=== PATIENT | male | born 1945 | race Two or more races ===

== ENCOUNTER 2016-10-29 11:24 | Inpatient (IN) | payer MEDICARE, OTHER ==
[~2016-10-29] VITALS: Ht 172.7 cm; Wt 90.7 kg
[~2016-10-29 11:24] MED LIST: GLUCOPHAGE850 MG ORAL; XARELTO15 MG ORAL
[2016-10-29] MEDS ORDERED: Acetaminophen 500mg (ES) tab ORAL ONE (12:15)
[2016-10-29] MEDS ORDERED: Ampicillin/Sulbactam Sod 3 GM in NS 110 ML IV SCH (12:15)
[2016-10-29] MEDS ORDERED: Unasyn 3gm Inj ONE (12:51)
[2016-10-29 13:25] VITALS: BP 114/64
[2016-10-29 13:57] LABS: BASOPHILS % (AUTO) 1.2 % (0.0-2.0); EOSINOPHILS % (AUTO) 0.2 % (0.0-3.0); LYMPHOCYTES % (AUTO) 9.1 % (20.0-45.0); MEAN CORPUSCULAR HEMOGLOBIN 32.1 PG (27.0-31.0); MEAN CORPUSCULAR HGB CONC 35.4 G/DL (32.0-36.0); MEAN CORPUSCULAR VOLUME 91 FL (80-99); MEAN PLATELET VOLUME 5.8 FL (6.5-10.1); MONOCYTES % (AUTO) 4.9 % (1.0-10.0); NEUTROPHILS % (AUTO) 84.7 % (45.0-75.0); PLATELET COUNT 273 K/UL (150-450); RED BLOOD COUNT 4.39 M/UL (4.70-6.10); RED CELL DISTRIBUTION WIDTH 11.6 % (11.6-14.8); WHITE BLOOD COUNT 14.3 K/UL (4.8-10.8)
[2016-10-29 14:03] LABS: PROTHROMBIN TIME 10.2 SEC (9.30-11.50)
[2016-10-29 14:23] LABS: ALANINE AMINOTRANSFERASE 15 U/L (3-41); ALBUMIN/GLOBULIN RATIO 1.1 (1.0-2.7); ANION GAP 15 (5-15); ASPARTATE AMINO TRANSFERASE 14 U/L (5-40); CALCIUM 9.7 mg/dL (8.6-10.2); CARBON DIOXIDE 26 mEQ/L (20-30); CHLORIDE 92 mEQ/L (98-107); CREATININE 0.8 mg/dL (0.7-1.2); GLOMERULAR FILTRATION RATE > 60 mL/min (>60); HEMOLYSIS 0; POTASSIUM 4.1 mEQ/L (3.4-4.9); SODIUM 133 mEQ/L (135-145); TOTAL PROTEIN 6.6 g/dL (6.6-8.7)
[2016-10-29 14:37] LABS: TROPONIN I < 0.30 ng/mL (<=0.30)
--- NOTE | 2016-10-29 14:41 | Emergency Room Report ---
History of Present Illness General Chief Complaint: Gastrointestinal Bleed Source: Patient (ARASH MURPHY M.D.) Present Illness HPI 70-year-old male presents to ED complaining of pain to the rectal area with bleeding x2 days. Patient states he takes Xarelto. Notes blood clots when he defecates. States pain in the rectal area. Notes fevers and chills. No other aggravating or relieving factors. Denies any other associated symptoms (ARASH MURPHY M.D.) Allergies: Coded Allergies: No Known Allergies (Unverified , 06/18/16) Patient History Past Medical History: DM Past Surgical History: none Pertinent Family History: none Social History: Denies: alcohol use, drug use, smoking Immunizations: UTD Reviewed Nursing Documentation: PMH: Agreed, PSxH: Agreed (ARASH MURPHY M.D.) Nursing Documentation-PMH Hx Cardiac Problems: No Hx Diabetes: Yes Hx Cancer: No Hx Gastrointestinal Problems: No Hx Neurological Problems: No (ARASH MURPHY M.D.) Review of Systems All Other Systems: negative except mentioned in HPI (ARASH MURPHY M.D.) Physical Exam Vital Signs Date Time Temp Pulse Resp B/P Pulse Ox O2 Delivery O2 Flow Rate FiO2 10/29/16 11:49 101.8 104 20 136/73 98 Room Air Sp02 EP Interpretation: reviewed, normal General Appearance: no apparent distress, alert, GCS 15, non-toxic Head: normocephalic Eyes: bilateral eye PERRL, bilateral eye normal inspection ENT: normal ENT inspection Neck: normal inspection Respiratory: chest non-tender, lungs clear, normal breath sounds, speaking full sentences Cardiovascular #1: regular rate, rhythm, no edema Gastrointestinal: normal bowel sounds, non tender, soft, non-distended, no guarding, no rebound Rectal: heme negative stool, other - erythema/induration to R buttock radiating down R posterior thigh Genitourinary: no CVA tenderness Musculoskeletal: normal inspection Neurologic: alert, oriented x3, responsive, motor strength/tone normal, sensory intact, speech normal Psychiatric: normal inspection Skin: normal inspection Lymphatic: normal inspection (ARASH MURPHY M.D.) Medical Decision Making Diagnostic Impression: Primary Impression: Perirectal cellulitis Labs Test 10/29/16 13:01 White Blood Count 14.3 K/UL (4.8-10.8) Red Blood Count 4.39 M/UL (4.70-6.10) Hemoglobin 14.1 G/DL (14.2-18.0) Hematocrit 39.8 % (42.0-52.0) Mean Corpuscular Volume 91 FL (80-99) Mean Corpuscular Hemoglobin 32.1 PG (27.0-31.0) Mean Corpuscular Hemoglobin Concent 35.4 G/DL (32.0-36.0) Red Cell Distribution Width 11.6 % (11.6-14.8) Platelet Count 273 K/UL (150-450) Mean Platelet Volume 5.8 FL (6.5-10.1) Neutrophils (%) (Auto) 84.7 % (45.0-75.0) Lymphocytes (%) (Auto) 9.1 % (20.0-45.0) Monocytes (%) (Auto) 4.9 % (1.0-10.0) Eosinophils (%) (Auto) 0.2 % (0.0-3.0) Basophils (%) (Auto) 1.2 % (0.0-2.0) Prothrombin Time 10.2 SEC (9.30-11.50) Prothromb Time International Ratio 1.0 (0.9-1.1) Activated Partial Thromboplast Time 30 SEC (23-33) Sodium Level 133 mEQ/L (135-145) Potassium Level 4.1 mEQ/L (3.4-4.9) Chloride Level 92 mEQ/L (98-107) Carbon Dioxide Level 26 mEQ/L (20-30) Anion Gap 15 (5-15) Blood Urea Nitrogen 10 mg/dL (7-23) Creatinine 0.8 mg/dL (0.7-1.2) Estimat Glomerular Filtration Rate > 60 mL/min (>60) Glucose Level 298 mg/dL (74-106) Lactic Acid Level 1.50 mmol/L (0.66-2.22) Calcium Level 9.7 mg/dL (8.6-10.2) Total Bilirubin 0.7 mg/dL (0.0-1.2) Aspartate Amino Transf (AST/SGOT) 14 U/L (5-40) Alanine Aminotransferase (ALT/SGPT) 15 U/L (3-41) Alkaline Phosphatase 137 U/L (40-129) Total Creatine Kinase 52 U/L (38-174) Troponin I < 0.30 ng/mL (<=0.30) Total Protein 6.6 g/dL (6.6-8.7) Albumin 3.5 g/dL (3.5-5.2) Globulin 3.1 g/dL Albumin/Globulin Ratio 1.1 (1.0-2.7) (ARASH MURPHY M.D.) ER Course Received signout from Dr Murphy to followup CTAP for this patient with concern for perineal/rectal abscess. 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 CTAP does nto demonstrate abscess. + colitis/enteritis of distal colon with edema of right thigh tissue Unasyn already given Will add on Flagyl and Vanc Endorsed to Dr Watson for admission here He requested ID Dr Gutierrez and Dr Berrios GenSujesseniag consults, which I placed at 408pm Patient remains stable in ED (MIRIAM BOWEN M.D.) Last Vital Signs Date Time Temp Pulse Resp B/P Pulse Ox O2 Delivery O2 Flow Rate FiO2 10/29/16 13:25 98.6 84 18 114/64 94 Room Air (ARASH MURPHY M.D.) Status: improved (MIRIAM BOWEN M.D.) Disposition: ADMITTED INPATIENT Condition: Serious Referrals: NON PHYSICIAN (PCP) ARASH MURPHY M.D. Oct 29, 2016 14:41 MIRIAM BOWEN M.D. Oct 29, 2016 16:08
[2016-10-29 15:12] VITALS: BP 107/63
--- NOTE | 2016-10-29 15:55 | Diagnostic Imaging Report ---
Clinical Indication: Abdominal pain. Rectal bleeding. Only graft right thigh Technique: No oral contrast utilized, per emergency room physician request IV administration nonionic contrast. Venous phase spiral acquisition obtained through the abdomen and pelvis. Multiplanar reconstructions were generated. Total dose length product 1/2/19 mGycm. CTDIvol(s) 17.9 mGy Comparison: No Findings: There is edema of the medial proximal right thigh, some associated skin thickening. This is mild. This extends beyond the imaging volume There is wall thickening of the distal and terminal ileum, and infiltration of the adjacent fat. No focal fluid collections to suggest abscess. There is also wall thickening of the sigmoid colon. No bowel distention. No free or loculated intraperitoneal air or fluid is evident. The appendix is normal. There is no evidence of diverticulosis or diverticulitis. There is a small duodenal diverticulum. The distal esophagus and stomach are unremarkable. There are small bilateral fat-containing inguinal hernias The gallbladder contains multiple gallstones. The liver, bile ducts pancreas, spleen, adrenals, right kidney are unremarkable. The left kidney demonstrates 2 adjacent cysts. No renal or ureteral calculi, hydronephrosis, or hydroureter. No retroperitoneal or mesenteric mass or adenopathy. The prostate is moderately enlarged, measuring 6.1 cm transverse by 4.1 cm AP. The included lung bases are clear. The heart is enlarged. There are degenerative changes of the lumbar spine. A single gas bubble is seen in the paraspinous soft tissues just to the right of the L4 spinous process. No associated soft tissue infiltration or fluid is demonstrated. Impression: Wall thickening of the distal and terminal ileum, and of the sigmoid colon. Findings are consistent with enteritis/colitis, nonspecific as regards etiology. No evidence of associated abscess Edema of the the medial right thigh soft tissues, incompletely included. Nonspecific as regards etiology Single gas bubble in the paraspinous soft tissues just to the right L4 spinous process. Of uncertain significance. Correlate with any clinical history of recent instrumentation in this area. Cardiomegaly Cholelithiasis Prostatomegaly Incidental findings as noted, including degenerative spondylosis, small fat-containing bilateral inguinal hernias, left renal cysts The CT scanner at [facility] is accredited by the [employer] and the scans are performed using protocols designed to limit radiation exposure to as low as reasonably achievable to attain images of sufficient resolution adequate for diagnostic evaluation.
[2016-10-29] MEDS ORDERED: Vancomycin 1.5 GM in D5W 325 ML IVPB STA (16:08)
[2016-10-29] MEDS ORDERED: metroNIDAZOLE 500mg 100 ML IVPB ONE (16:15)
[2016-10-29] MEDS ORDERED: Vancomycin 1gm inj IVPB ONE (16:25)
[2016-10-29 16:37] LABS: CKMB 1.4 ng/mL (< 6.7)
[2016-10-29 17:21] LABS: APPEARANCE,URINE CLEAR; KETONES,URINE NEGATIVE (NEGATIVE); LEUKOCYTE ESTERASE ,URINE NEGATIVE (NEGATIVE); NITRITE,URINE NEGATIVE (NEGATIVE); PH,URINE 5 (4.5-8.0); PROTEIN,URINE 2+ (NEGATIVE); UROBILINOGEN,URINE 1 MG/DL (0.0-1.0)
[2016-10-29 17:30] LABS: BACTERIA,URINE FEW /HPF; WBC,URINE 0-2 /HPF (0 - 0)
[2016-10-29] MEDS ORDERED: Lidocaine 1% 10mg/ml/Epi 0.005mg/ml 30ml vial INJ ONE (17:53)
[2016-10-29] MEDS ORDERED: Lidocaine 1% Plain 30 ml INJ ONE (17:53)
--- NOTE | 2016-10-29 19:03 | Consultation ---
History of Present Illness General Date patient seen: Oct 29, 2016 Chief Complaint: perineal / thigh pain Reason for Consultation: perineal / thigh abscess with cellulitis Present Illness HPI 70 year old male with multiple medical problems as listed below presents to ED complaining of right groin pain. patient stated that he has had history of right groin abscesses for years now. he gets one almost annually. states that most of the time they resolve on their own. most recent episode began 5 days ago when he first noted an area of induration in his right groin around the thigh perineal crease. this began to enlarge, become red, warm and tender. two days later he noted and area of skin that opened up and began to drain. as this continued he decided to come to ED today for evaluation. CT scan performed and cellulitis noted in right groin. surgery called to evaluate. When seen at bedside patient states above. otherwise well. no n/v/f/c. drainage has been foul smelling. Allergies: Coded Allergies: No Known Allergies (Unverified , 06/18/16) Medication History Scheduled Metformin Hcl* (Glucophage*), 850 MG ORAL TIAC Rivaroxaban (Xarelto), 15 MG ORAL BID Patient History History Provided By: Patient Healthcare decision maker Resuscitation status Advanced Directive on File Past Medical/Surgical History Past Medical/Surgical History: (1) Deep vein thrombosis (DVT) of right upper extremity (2) Diabetes type 2, uncontrolled (3) Deep vein thrombosis (DVT) of femoral vein of right lower extremity (4) Perirectal cellulitis Review of Systems Constitutional: Denies: chills, fever, malaise, no symptoms, other, see HPI, sweats, weakness Eye: Denies: acuity changes, blurred vision, discharge, double vision, eye pain , no symptoms, nose congestion, nose pain, other, see HPI, tearing ENT: Denies: ear discharge, ear pain, hearing loss, mouth pain, nasal discharge , no symptoms, nose congestion, nose pain, other, see HPI, throat pain, throat swelling Respiratory: Denies: RICARDO, cough, no symptoms, orthopnea, other, see HPI, shortness of breath, sputum, stridor, wheezing Cardiovascular: Denies: PND, chest pain, edema, no symptoms, other, palpitations, see HPI, syncope Gastrointestinal: Denies: abdominal pain, constipation, diarrhea, hematemesis, melena, nausea, no symptoms, other, see HPI, vomiting Genitourinary: Denies: discharge, dysuria, frequency, hematuria, incontinence, no symptoms, other, pain, retention, see HPI, urgency, vag bleed/dc Musculoskeletal: Denies: back pain, gout, joint pain, joint swelling, muscle pain, muscle stiffness, no symptoms, other, see HPI Skin: Reports: other - right groin pain Psychiatric: Denies: HI, SI, anxiety, depressed feelings, emotional problems, hallucinations, no symptoms, other, prior hx, see HPI Neurological: Denies: dizziness, focal weakness, headache, no symptoms, numbness, other, paresthesia, see HPI, seizure, syncope, tingling, tremors Endocrine: Denies: excessive sweating, flushing, increased thirst, increased urine, intolerance to temperature, no symptoms, other, see HPI, unexplained weight loss Hematologic/Lymphatic: Denies: anemia, blood clots, diathesis, easy bleeding, easy bruising, no symptoms, other, see HPI, swollen glands All Other Systems: negative except mentioned in HPI Physical Exam General Appearance: WD/WN, no apparent distress, alert Lines, tubes and drains: peripheral HEENT: normocephalic, atraumatic Neck: non-tender, supple Respiratory/Chest: lungs clear, normal breath sounds, no respiratory distress Cardiovascular/Chest: normal peripheral pulses, normal rate, regular rhythm Abdomen: normal bowel sounds, non tender, soft, no organomegaly Genitourinary/Rectal: other - abscess with cellulitis, erythema, edema, and fluctuance in right groin. 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, no motor/sensory deficits Last 24 Hour Vital Signs Date Time Temp Pulse Resp B/P Pulse Ox O2 Delivery O2 Flow Rate FiO2 10/29/16 15:12 98.3 89 16 107/63 98 Room Air 10/29/16 13:53 98.3 10/29/16 13:25 98.6 84 18 114/64 94 Room Air 10/29/16 11:49 101.8 104 20 136/73 98 Room Air Laboratory Tests Test 10/29/16 13:01 10/29/16 16:22 White Blood Count 14.3 K/UL (4.8-10.8) H Red Blood Count 4.39 M/UL (4.70-6.10) L Hemoglobin 14.1 G/DL (14.2-18.0) L Hematocrit 39.8 % (42.0-52.0) L Mean Corpuscular Volume 91 FL (80-99) Mean Corpuscular Hemoglobin 32.1 PG (27.0-31.0) H Mean Corpuscular Hemoglobin Concent 35.4 G/DL (32.0-36.0) Red Cell Distribution Width 11.6 % (11.6-14.8) Platelet Count 273 K/UL (150-450) Mean Platelet Volume 5.8 FL (6.5-10.1) L Neutrophils (%) (Auto) 84.7 % (45.0-75.0) H Lymphocytes (%) (Auto) 9.1 % (20.0-45.0) L Monocytes (%) (Auto) 4.9 % (1.0-10.0) Eosinophils (%) (Auto) 0.2 % (0.0-3.0) Basophils (%) (Auto) 1.2 % (0.0-2.0) Prothrombin Time 10.2 SEC (9.30-11.50) Prothromb Time International Ratio 1.0 (0.9-1.1) Activated Partial Thromboplast Time 30 SEC (23-33) Sodium Level 133 mEQ/L (135-145) L Potassium Level 4.1 mEQ/L (3.4-4.9) Chloride Level 92 mEQ/L (98-107) L Carbon Dioxide Level 26 mEQ/L (20-30) Anion Gap 15 (5-15) Blood Urea Nitrogen 10 mg/dL (7-23) Creatinine 0.8 mg/dL (0.7-1.2) Estimat Glomerular Filtration Rate > 60 mL/min (>60) Glucose Level 298 mg/dL (74-106) H Lactic Acid Level 1.50 mmol/L (0.66-2.22) Calcium Level 9.7 mg/dL (8.6-10.2) Total Bilirubin 0.7 mg/dL (0.0-1.2) Aspartate Amino Transf (AST/SGOT) 14 U/L (5-40) Alanine Aminotransferase (ALT/SGPT) 15 U/L (3-41) Alkaline Phosphatase 137 U/L (40-129) H Total Creatine Kinase 52 U/L (38-174) Creatine Kinase MB 1.4 ng/mL (< 6.7) Creatine Kinase MB Relative Index 2.6 Troponin I < 0.30 ng/mL (<=0.30) Total Protein 6.6 g/dL (6.6-8.7) Albumin 3.5 g/dL (3.5-5.2) Globulin 3.1 g/dL Albumin/Globulin Ratio 1.1 (1.0-2.7) Urine Color Yellow Urine Appearance Clear Urine pH 5 (4.5-8.0) Urine Specific [place] 1.015 (1.005-1.035) Urine Protein 2+ (NEGATIVE) H Urine Glucose (UA) 4+ (NEGATIVE) H Urine Ketones Negative (NEGATIVE) Urine Occult Blood 1+ (NEGATIVE) H Urine Nitrite Negative (NEGATIVE) Urine Bilirubin Negative (NEGATIVE) Urine Urobilinogen 1 MG/DL (0.0-1.0) H Urine Leukocyte Esterase Negative (NEGATIVE) Urine RBC 2-4 /HPF (0 - 0) H Urine WBC 0-2 /HPF (0 - 0) Urine Squamous Epithelial Cells None /LPF (NONE/OCC) Urine Bacteria Few /HPF (NONE) Height (Feet): 5 Height (Inches): 8.00 Weight (Pounds): 200 Medications Current Medications Medications (Trade) Dose Ordered Sig/Evangelina Route PRN Reason Start Time Stop Time Status Last Admin Dose Admin Ampicillin Sodium/ Sulbactam Sodium/ Sodium Chloride (Unasyn/Sodium Chloride) 110 ml @ 220 mls/hr Q6H IV 10/29/16 12:15 10/30/16 12:14 10/29/16 13:19 Assessment/Plan Problem List: (1) Perirectal cellulitis ICD Codes: K61.1 - Rectal abscess SNOMED: [id number] Assessment/Plan 70 M groin/perineal/lateral thigh abscess with surrounding cellulitis. Afebrile , HD stable, leukocytosis of 14k, elevated glucose exam as above, CT scan reviewed. Will I&D abscess at bedside in ED - risks, benefits and alternatives discussed in detail with patient. consented at bedside - please refer to operative report for detail Wet to Dry dressings to groin I&D BID IV Abx Tight glucose control Trending labs. Will monitor wound. thank you for this consultation. will follow with you Davie Gongora Oct 29, 2016 19:03
--- NOTE | 2016-10-29 19:07 | Operative Note - PDOC ---
Operative Note Operative Note Date of Operation/Procedure: Oct 29, 2016 Chief Complaint: right groin pain Pre-op Diagnosis: Right groin abscess with cellulitis Procedure: incision and drainage of right groin abscess Post-op Diagnosis: same as pre-op Operative Findings: consistent w/pre-op dx studies Surgeon: Rolan Anesthesiologist: edison provided by surgeon Anesthesia: local Specimen: yes - culture taken for micro Complications: none Condition: stable Fluids: n/a Estimated Blood Loss: minimal Drains: none Packing: gauze wet to dry bid Implant(s) used?: No Indications for Procedure 70 M with right groin abscess w/ surrounding cellulitis. Please refer to Consult note for details. On exam area of fluctuance identified consistent with abscess. I&D indicated. patient informed of findings. risks, benefits, and alternatives discussed in detail. patient expressed understanding and consented to surgery Description of Procedure patient was made comfortable at bedside. proposed skin site was cleaned, prepped and draped in standard surgical fashion. 1% lidocaine with epi was infiltrated into proposed skin site. 10cc was used in total. using fresh #11 scalpel a skin incision was made over area of fluctuance. 10-15cc of purulent fluid was evacuated. cultures were taken of this pus. a second incision was made to evacuate smaller connecting abscess. both wounds were washed out. packing and dressings were applied. patient tolerated procedure well. Davie Gongora Oct 29, 2016 19:07
[2016-10-29 20:00] VITALS: BP 123/66
[2016-10-29] MEDS ORDERED: Zolpidem 5mg tab ORAL PRN (20:45)
[2016-10-29] MEDS ORDERED: Norco 5mg/325mg tab ORAL PRN (20:45)
[2016-10-29] MEDS ORDERED: Vancomycin 1.5 GM in D5W 325 ML IVPB ONE (21:00)
--- NOTE | 2016-10-29 23:07 | History and Physical Report ---
DATE OF ADMISSION: 10/29/2016 CHIEF COMPLAINT: Rectal bleeding. HISTORY OF PRESENT ILLNESS: The patient states that he has been ill for about four to five days with blood in the stool and pain around the rectum. He was evaluated in the emergency department and found to have cellulitis in the perineal area and down the medial thigh of the right leg as well as fever over 101 degrees. An admission was arranged. PAST MEDICAL HISTORY: The patient states he has never had any rectal problems in the past. He has a history of diabetes and is on oral medication for this. He denies any history of hypertension or hyperlipidemia. He is on anticoagulants. He states he has no heart disease. He has a history of deep vein thrombosis on the right leg several months ago. ALLERGIES: None. MEDICATIONS: Xarelto and metformin. REVIEW OF SYSTEMS: Otherwise unremarkable. PHYSICAL EXAMINATION: GENERAL: The patient is an overweight man, who appears his stated age. VITAL SIGNS: Show temperature of 101.8 degrees; heart rate was elevated, but came down after the temperature improved; and blood pressure is normal. SKIN: Warm and dry except in the perineal area in the right thigh as noted below. HEENT: The head is normocephalic. NECK: No jugular venous distention. CHEST: Clear. CARDIAC: Rhythm is regular. ABDOMEN: Soft and nontender. Liver and spleen are not enlarged. EXTREMITIES: No clubbing, cyanosis, or edema. The perirectal area and perineum and medial right thigh have a large area of cellulitis with some ulceration in the perineum and the base of the scrotum. LABORATORY TESTS AND IMAGING: Show normal ProTime and PTT. The white count is 14,300, hemoglobin is 14.1, and platelets are normal. Blood sugar is 298. Alkaline phosphatase elevated at 137. CT scan of the abdomen and pelvis showed some thickening of the distal terminal ileum and sigmoid colon consistent with enteritis or colitis, which is nonspecific. There is edema of the right medial thigh soft tissue, but this is incompletely imaged. The prostate is moderately enlarged. There is a gas bubble in the soft tissue of the paraspinous region to the right of L4 of uncertain significance. The heart is enlarged. There are gallstones and bilateral inguinal hernias. IMPRESSION: 1. 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 2. Diabetes mellitus, poorly controlled. 3. Possible colitis or ileitis. PLAN: The patient will be admitted. Given broad-spectrum antibiotics. Infectious disease consultation and surgical consultation have been requested. Brady Watson M.D. DR: TINA JOB#: [id number] CC:
[2016-10-29 23:48] VITALS: BP 134/72
[2016-10-30 04:00] VITALS: BP 132/74
[2016-10-30] MEDS: NovoLOG Insulin Flexpen SUBQ SCH ×4 (06:10→22:07)
[2016-10-30 07:01] LABS: BASOPHILS % (AUTO) 0.7 % (0.0-2.0); EOSINOPHILS % (AUTO) 0.9 % (0.0-3.0); MEAN CORPUSCULAR HEMOGLOBIN 32.8 PG (27.0-31.0); MEAN CORPUSCULAR HGB CONC 36.5 G/DL (32.0-36.0); MEAN CORPUSCULAR VOLUME 90 FL (80-99); MONOCYTES % (AUTO) 6.4 % (1.0-10.0); PLATELET COUNT 275 K/UL (150-450); RED BLOOD COUNT 4.08 M/UL (4.70-6.10); RED CELL DISTRIBUTION WIDTH 11.3 % (11.6-14.8); WHITE BLOOD COUNT 10.8 K/UL (4.8-10.8)
[2016-10-30 07:10] LABS: ALANINE AMINOTRANSFERASE 11 U/L (3-41); ALBUMIN/GLOBULIN RATIO 0.8 (1.0-2.7); ANION GAP 14 (5-15); ASPARTATE AMINO TRANSFERASE 11 U/L (5-40); CALCIUM 9.4 mg/dL (8.6-10.2); CARBON DIOXIDE 24 mEQ/L (20-30); CHLORIDE 100 mEQ/L (98-107); CREATININE 0.7 mg/dL (0.7-1.2); GLOMERULAR FILTRATION RATE > 60 mL/min (>60); HEMOLYSIS 0; POTASSIUM 3.5 mEQ/L (3.4-4.9); SODIUM 138 mEQ/L (135-145); TOTAL PROTEIN 6.5 g/dL (6.6-8.7)
[2016-10-30 08:13] LABS: ERYTHROCYTE SEDIMENTATION RATE 98 MM/HR (0-20)
[2016-10-30 08:15] VITALS: BP 103/58
--- NOTE | 2016-10-30 08:16 | General Progress Note ---
Progress Note Progress Note Left groin abscess wound very clean, slow granulation starting, no bleeding Daily dressing changes with wet to dry. LISA WARD Oct 30, 2016 08:16
[2016-10-30] MEDS: Piperacillin/Tazobactam 3.375 GM in D5W 110 ML IVPB SCH ×4 (08:43→17:45)
[2016-10-30 11:54] VITALS: BP 112/65
[2016-10-30] MEDS: Vancomycin 1250mg in D5W 275ml IVPB SCH (12:33)
[2016-10-30 12:55] LABS: HEMOGLOBIN A1C 7.7 % (< 6.0)
[2016-10-30 13:47] LABS: CHOLESTEROL 107 mg/dL (< 200); CHOLESTEROL/HDL RATIO 8.2 (3.3-4.4); LDL CHOLESTEROL (CALC.) 70 mg/dL (60-99)
[2016-10-30 16:05] VITALS: BP 118/63
--- NOTE | 2016-10-30 19:02 | General Progress Note ---
Assessment/Plan Assessment/Plan 1. 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 2. Diabetes mellitus, poorly controlled. 3. Possible colitis or ileitis. surgery I and D and packed wound at R groin ID started Zosyn and vanco pain controlled BS better, WBC down cont rx Subjective Constitutional: Denies: chills, fever Allergies: Coded Allergies: No Known Allergies (Unverified , 06/18/16) Objective Last 24 Hour Vital Signs Date Time Temp Pulse Resp B/P Pulse Ox O2 Delivery O2 Flow Rate FiO2 10/30/16 16:05 95.7 74 18 118/63 94 Room Air 10/30/16 11:54 98.1 76 18 112/65 94 Room Air 10/30/16 08:15 98.3 82 18 103/58 93 Room Air 10/30/16 04:00 97.6 89 20 132/74 97 Room Air 10/29/16 23:48 97.4 90 19 134/72 97 Room Air 10/29/16 20:00 97.9 90 20 123/66 93 Room Air 10/29/16 19:36 98.3 89 16 107/63 98 Room Air Intake and Output 10/29/16 10/30/16 19:00 07:00 Intake Total 210 ml 975 ml Balance 210 ml 975 ml IV Total 210 ml 975 ml # Voids 1 4 # Bowel Movements 1 Laboratory Tests 10/30/16 04:55: White Blood Count 10.8, Red Blood Count 4.08L, Hemoglobin 13.4L, Hematocrit 36.7L, Mean Corpuscular Volume 90, Mean Corpuscular Hemoglobin 32.8H, Mean Corpuscular Hemoglobin Concent 36.5H, Red Cell Distribution Width 11.3L, Platelet Count 275, Mean Platelet Volume 6.0L, Neutrophils (%) (Auto) 77.0H, Lymphocytes (%) (Auto) 15.0L, Monocytes (%) (Auto) 6.4, Eosinophils (%) (Auto) 0.9, Basophils (%) (Auto) 0.7, Erythrocyte Sedimentation Rate 98H, Sodium Level 138, Potassium Level 3.5, Chloride Level 100, Carbon Dioxide Level 24, Anion Gap 14, Blood Urea Nitrogen 9, Creatinine 0.7, Estimat Glomerular Filtration Rate > 60, Glucose Level 172#H, Hemoglobin A1c 7.7H, Calcium Level 9.4, Total Bilirubin 0.5, Aspartate Amino Transf (AST/SGOT) 11, Alanine Aminotransferase ( ALT/SGPT) 11, Alkaline Phosphatase 130H, Total Protein 6.5L, Albumin 3.0L, Globulin 3.5, Albumin/Globulin Ratio 0.8L, Triglycerides Level 120, Cholesterol Level 107, LDL Cholesterol 70, HDL Cholesterol 13, Cholesterol/HDL Ratio 8.2H Height (Feet): 5 Height (Inches): 8.00 Weight (Pounds): 200 Skin: other - indurated R groin, perineum, packed MIRIAM DAWSON Oct 30, 2016 19:02
[2016-10-30 20:00] VITALS: BP 124/66
--- NOTE | 2016-10-30 22:33 | Infectious Diseases Prog Note ---
Assessment/Plan Assessment/Plan Full consult dictated: A) 1) right groin abscess and cellulitis 2) sepsis, leukocytosis, fevers, sirs 3) s/p I/D by surgery P) 1) vancomycin and zosyn 2) check wound culture and labs 3) thank you Subjective Allergies: Coded Allergies: No Known Allergies (Unverified , 06/18/16) Objective Vital Signs Last 24 Hour Vital Signs Date Time Temp Pulse Resp B/P Pulse Ox O2 Delivery O2 Flow Rate FiO2 10/30/16 20:00 97.8 79 20 124/66 95 Room Air 10/30/16 16:05 95.7 74 18 118/63 94 Room Air 10/30/16 11:54 98.1 76 18 112/65 94 Room Air 10/30/16 08:15 98.3 82 18 103/58 93 Room Air 10/30/16 04:00 97.6 89 20 132/74 97 Room Air 10/29/16 23:48 97.4 90 19 134/72 97 Room Air Height (Feet): 5 Height (Inches): 8.00 Weight (Pounds): 200 Microbiology Date/Time Source Procedure Growth Status 10/29/16 19:05 Rectum Gram Stain - Final Resulted 10/29/16 19:05 Rectum Wound Culture Pending Resulted 10/29/16 19:05 Rectum Aerobic Culture Pending Resulted 10/29/16 19:05 Rectum Anaerobic Culture Pending Resulted Laboratory Tests Test 10/30/16 04:55 White Blood Count 10.8 K/UL (4.8-10.8) Red Blood Count 4.08 M/UL (4.70-6.10) L Hemoglobin 13.4 G/DL (14.2-18.0) L Hematocrit 36.7 % (42.0-52.0) L Mean Corpuscular Volume 90 FL (80-99) Mean Corpuscular Hemoglobin 32.8 PG (27.0-31.0) H Mean Corpuscular Hemoglobin Concent 36.5 G/DL (32.0-36.0) H Red Cell Distribution Width 11.3 % (11.6-14.8) L Platelet Count 275 K/UL (150-450) Mean Platelet Volume 6.0 FL (6.5-10.1) L Neutrophils (%) (Auto) 77.0 % (45.0-75.0) H Lymphocytes (%) (Auto) 15.0 % (20.0-45.0) L Monocytes (%) (Auto) 6.4 % (1.0-10.0) Eosinophils (%) (Auto) 0.9 % (0.0-3.0) Basophils (%) (Auto) 0.7 % (0.0-2.0) Erythrocyte Sedimentation Rate 98 MM/HR (0-20) H Sodium Level 138 mEQ/L (135-145) Potassium Level 3.5 mEQ/L (3.4-4.9) Chloride Level 100 mEQ/L (98-107) Carbon Dioxide Level 24 mEQ/L (20-30) Anion Gap 14 (5-15) Blood Urea Nitrogen 9 mg/dL (7-23) Creatinine 0.7 mg/dL (0.7-1.2) Estimat Glomerular Filtration Rate > 60 mL/min (>60) Glucose Level 172 mg/dL (74-106) #H Hemoglobin A1c 7.7 % (< 6.0) H Calcium Level 9.4 mg/dL (8.6-10.2) Total Bilirubin 0.5 mg/dL (0.0-1.2) Aspartate Amino Transf (AST/SGOT) 11 U/L (5-40) Alanine Aminotransferase (ALT/SGPT) 11 U/L (3-41) Alkaline Phosphatase 130 U/L (40-129) H Total Protein 6.5 g/dL (6.6-8.7) L Albumin 3.0 g/dL (3.5-5.2) L Globulin 3.5 g/dL Albumin/Globulin Ratio 0.8 (1.0-2.7) L Triglycerides Level 120 mg/dL (< 150) Cholesterol Level 107 mg/dL (< 200) LDL Cholesterol 70 mg/dL (60-99) HDL Cholesterol 13 mg/dL (> 60) Cholesterol/HDL Ratio 8.2 (3.3-4.4) H Current Medications Medications (Trade) Dose Ordered Sig/Evangelina Route PRN Reason Start Time Stop Time Status Last Admin Dose Admin Acetaminophen (Tylenol) 650 mg Q4H PRN ORAL Mild Pain/Temp > 100.5 10/29/16 20:45 11/28/16 20:44 Acetaminophen/ Hydrocodone Bitart ([place] 5/325) 1 tab Q4H PRN ORAL Moderate Pain (Pain Scale 4-6) 10/29/16 20:45 11/05/16 20:44 Dextrose (Dextrose 50%) STAT PRN IV Hypoglycemia 10/30/16 00:00 11/29/16 00:00 Insulin Aspart (NovoLOG) BEFORE MEALS AND HS SUBQ 10/30/16 06:30 11/29/16 06:29 10/30/16 22:07 Ondansetron HCl (Zofran) 4 mg Q4H PRN IVP Nausea & Vomiting 10/29/16 20:45 11/28/16 20:44 Piperacillin Sod/ Tazobactam Sod 3.375 gm/Dextrose 110 ml @ 27.5 mls/hr Q8HR@0000,0800,1600 IVPB 10/30/16 00:00 11/06/16 00:00 10/30/16 17:45 Sodium Chloride (Sodium Chloride 1000ml bag) 1,000 ml @ 75 mls/hr [id number] IV 10/29/16 20:45 11/28/16 20:44 10/30/16 22:04 Vancomycin HCl 1 ea 1 ea DAILY PRN MISC Per rx protocol 10/29/16 21:00 11/28/16 20:59 Vancomycin HCl/ Dextrose (Vancomycin/D5W) 275 ml @ 183.708 mls/hr Q12H IVPB 10/30/16 12:00 11/04/16 11:59 10/30/16 12:33 Zolpidem Tartrate (Ambien) 5 mg HSPRN PRN ORAL Insomnia 10/29/16 20:45 11/28/16 20:44 GENET MCCLENDON Oct 30, 2016 22:33
[2016-10-31] VITALS: BP 129/74
--- NOTE | 2016-10-31 03:17 | Consultation ---
DATE OF CONSULTATION: 10/30/2016 INFECTIOUS DISEASE CONSULTATION CONSULTING PHYSICIAN: Anahi Garcia M.D. ATTENDING PHYSICIAN: Brady Watson M.D. REASON FOR CONSULTATION: Right groin and thigh abscess and cellulitis, possible sepsis, leukocytosis, and fevers. CHIEF COMPLAINT: The patient's chief complaint coming in is cellulitis of the right groin and thigh with possible perineal and perirectal involvement. HISTORY OF PRESENT ILLNESS: This is a very pleasant 70-year-old male, who comes in with groin, perineal, and perirectal pain. The patient presented to the [facility] with that complaint. The patient was noted to have a right groin and thigh abscess. The patient was treated by Surgery and is status post incision and drainage. The patient also had fevers. No leukocytosis. He could have early sepsis with SIRS criteria. Infectious Disease consultation was requested. The patient was placed on vancomycin and Zosyn. Wound culture is pending. PAST MEDICAL HISTORY: The patient's past medical history includes the history of following: The patient has a past medical history of rectal problems in the past and history of diabetes. He has a history of hypertension and hyperlipidemia. He has a history of anticoagulants. No history of heart disease. He has a history of DVT of the right leg several months ago. Please see past medical history in medical order. MEDICATIONS: Upon reviewing the MAR, the patient is on the following medications. He is on vancomycin, Zosyn, and insulin. He is on acetaminophen, Zolpidem, and Zofran. Please see medications in medical order. Outside medications were noted and reconciliated. ALLERGIES: No known allergies. SOCIAL HISTORY: Negative for smoking, alcohol, or drug abuse. FAMILY HISTORY: Noncontributory. REVIEW OF SYSTEMS: Constitutional: Generalized weakness and fatigue. No erythema, fever, or chills. Head And Neck: No thrush or dysphagia. Cardiac: No chest pain. Gastrointestinal: No nausea, vomiting, or diarrhea. Genitourinary: He has no dysuria or frequency. Pulmonary: No shortness of breath, cough, or sputum production. Skin: No rash or itching. Extremities: No extremity pain. Genitourinary: He did have perineal and perirectal pain. Neurologic: No seizures. Skin: No rash. PHYSICAL EXAMINATION: VITAL SIGNS: On admission, temperature 101.8 degrees, presently temperature is 97.8 degrees, pulse rate 79, respiratory rate 20, blood pressure 124/66, and saturation 95%. Pulse rate is as high as 104. GENERAL: Alert, responsive, and in no acute distress. HEAD AND NECK: Oral exam, no thrush. Eye exam, no icterus. Neck is supple. No JVD. No sinus tenderness. Normocephalic. No facial droop. No neck stiffness. HEART: Regular. No gallop or murmur. No friction or rub. ABDOMEN: Soft. Positive bowel sounds. Nontender. LUNGS: Clear bilaterally. No rhonchi or crackles. SKIN: No rash or dermatitis. MUSCULOSKELETAL: No effusions or contractures. EXTREMITIES: Legs are without cellulitis. PERIPHERAL VASCULAR: No cyanosis or gangrene. Right groin and thigh area has open abscess, wound, and surrounding cellulitis. Wound is well drained at this time. Abscess is well drained with mild cellulitis noted. RECTAL: Deferred. GENITOURINARY: No Mcnair. Line sites is without phlebitis. NEUROLOGIC: Intact. Nonfocal. LABORATORY DATA: Laboratory data is as follows. On admission, white count 14.3 and hemoglobin 14.1, now white count is 10.8. Creatinine is 0.7. Wound culture is pending. UA was leukocyte esterase negative. Wound culture from I&D is pending. CT scan of the abdomen and pelvis was noted. ASSESSMENT AND PLAN: 1. The patient has right groin and thigh abscess and cellulitis status post incision and drainage. The patient has possible early sepsis, systemic inflammatory response syndrome criteria, fevers, and leukocytosis. Continue vancomycin and Zosyn. Check wound culture from the incision and drainage. Continue wound care per Surgery. Continue vancomycin and Zosyn pending workup. Check followup labs. 2. Continue treatment per Dr. Watson. 3. The patient has a history of hypertension. 4. Diabetes. 5. Blood sugar and blood pressure control per Dr. Watson. 6. History of deep venous thrombosis, on anticoagulation. 7. Hyperlipidemia. 8. No known allergies. 9. Social history is negative. 10. MAR was noted. Notes and records were reviewed. Case was discussed with SREEKANTH. Anahi Garcia M.D. DR: ANITA JOB#: [id number] CC:
[2016-10-31 04:00] VITALS: BP 116/70
[2016-10-31] MEDS: NovoLOG Insulin Flexpen SUBQ SCH ×4 (05:51→20:48)
[2016-10-31 06:26] LABS: BASOPHILS % (AUTO) 1.3 % (0.0-2.0); LYMPHOCYTES % (AUTO) 19.4 % (20.0-45.0); MEAN CORPUSCULAR HEMOGLOBIN 31.9 PG (27.0-31.0); MEAN CORPUSCULAR HGB CONC 35.1 G/DL (32.0-36.0); MEAN CORPUSCULAR VOLUME 91 FL (80-99); MEAN PLATELET VOLUME 5.5 FL (6.5-10.1); MONOCYTES % (AUTO) 7.5 % (1.0-10.0); NEUTROPHILS % (AUTO) 69.9 % (45.0-75.0); PLATELET COUNT 295 K/UL (150-450); RED CELL DISTRIBUTION WIDTH 11.5 % (11.6-14.8); WHITE BLOOD COUNT 8.5 K/UL (4.8-10.8)
[2016-10-31 08:00] VITALS: BP 122/68
[2016-10-31] MEDS: Piperacillin/Tazobactam 3.375 GM in D5W 110 ML IVPB SCH ×4 (08:22→16:42)
[2016-10-31] MEDS: Vancomycin 1250mg in D5W 275ml IVPB SCH ×3 (11:30)
[2016-10-31 11:58] VITALS: BP 119/66
[2016-10-31 16:00] VITALS: BP 132/73
--- NOTE | 2016-10-31 16:39 | General Progress Note ---
Assessment/Plan Assessment/Plan 1. Cellulitis of perineum and right medial thigh, improved 2. Diabetes mellitus, improved control 3. Possible colitis or ileitis. ID started Zosyn and vanco, notes reviewed pain controlled BS better, WBC down cont rx Subjective Constitutional: Denies: fever Allergies: Coded Allergies: No Known Allergies (Unverified , 06/18/16) Objective Last 24 Hour Vital Signs Date Time Temp Pulse Resp B/P Pulse Ox O2 Delivery O2 Flow Rate FiO2 10/31/16 16:00 97.2 69 16 132/73 93 Room Air 10/31/16 11:58 97.9 64 19 119/66 99 Room Air 10/31/16 08:00 97.7 73 20 122/68 93 Room Air 10/31/16 04:00 97.4 73 18 116/70 93 Room Air 10/31/16 00:00 97.6 76 18 129/74 94 Room Air 10/30/16 20:00 97.8 79 20 124/66 95 Room Air Intake and Output 10/30/16 10/31/16 19:00 07:00 Intake Total 1749.9 ml 682.5 ml Output Total 300 ml 900 ml Balance 1449.9 ml -217.5 ml Intake Oral 720 ml IV Total 1029.9 ml 682.5 ml Output Urine Total 300 ml 900 ml # Voids 1 1 # Bowel Movements 1 Laboratory Tests 10/31/16 05:30: White Blood Count 8.5, Red Blood Count 3.90L, Hemoglobin 12.5L, Hematocrit 35.5L , Mean Corpuscular Volume 91, Mean Corpuscular Hemoglobin 31.9H, Mean Corpuscular Hemoglobin Concent 35.1, Red Cell Distribution Width 11.5L, Platelet Count 295, Mean Platelet Volume 5.5L, Neutrophils (%) (Auto) 69.9, Lymphocytes (%) (Auto) 19.4L, Monocytes (%) (Auto) 7.5, Eosinophils (%) (Auto) 2.0, Basophils (%) (Auto) 1.3 10/31/16 11:15: Vancomycin Level Trough 8.1 Height (Feet): 5 Height (Inches): 8.00 Weight (Pounds): 200 General Appearance: alert Cardiovascular: normal rate Respiratory/Chest: lungs clear MIRIAM DAWSON Oct 31, 2016 16:39
--- NOTE | 2016-10-31 17:37 | General Progress Note ---
Progress Note Progress Note Patient seen and examined at bedside. Doing well. Still has pain in groin but states it is better than prior. Denies f/v/n/v Wound still with mild purulent exudate. surrounding erythema and edema improving but still present. minimal necrotic tissue in wound bed Will re-examine wound tomorrow. If does not improve soon will likely require more debridement. I explained this to patient. He expressed understanding. continue IV Abx and wound care. Davie Gongora Oct 31, 2016 17:37
[2016-10-31 20:00] VITALS: BP 146/69
[2016-11-01] VITALS: BP 135/70
[2016-11-01] MEDS: Vancomycin 1.5 GM/D5W 325 ML IVPB SCH ×4 (00:26→11:40)
[2016-11-01] MEDS: Piperacillin/Tazobactam 3.375 GM in D5W 110 ML IVPB SCH ×2 (03:02→08:21)
[2016-11-01 04:00] VITALS: BP 128/80
[2016-11-01] MEDS: NovoLOG Insulin Flexpen SUBQ SCH ×4 (07:00→21:07)
[2016-11-01 07:24] LABS: BASOPHILS % (AUTO) 1.3 % (0.0-2.0); EOSINOPHILS % (AUTO) 2.1 % (0.0-3.0); LYMPHOCYTES % (AUTO) 22.1 % (20.0-45.0); MEAN CORPUSCULAR VOLUME 92 FL (80-99); MEAN PLATELET VOLUME 5.3 FL (6.5-10.1); MONOCYTES % (AUTO) 7.5 % (1.0-10.0); NEUTROPHILS % (AUTO) 67.1 % (45.0-75.0); PLATELET COUNT 319 K/UL (150-450); RED CELL DISTRIBUTION WIDTH 11.6 % (11.6-14.8); WHITE BLOOD COUNT 8.5 K/UL (4.8-10.8)
[2016-11-01 08:10] VITALS: BP 138/71
[2016-11-01 08:15] LABS: ANION GAP 15 (5-15); CALCIUM 9.1 mg/dL (8.6-10.2); CARBON DIOXIDE 25 mEQ/L (20-30); CHLORIDE 98 mEQ/L (98-107); CREATININE 0.8 mg/dL (0.7-1.2); GLOMERULAR FILTRATION RATE > 60 mL/min (>60); HEMOLYSIS 4; POTASSIUM 3.4 mEQ/L (3.4-4.9); SODIUM 138 mEQ/L (135-145)
[2016-11-01 11:32] VITALS: BP 129/73
[2016-11-01] MEDS: Xarelto 10mg tab ORAL SCH (12:04)
--- NOTE | 2016-11-01 13:53 | Infectious Diseases Prog Note ---
Assessment/Plan Assessment/Plan ASSESSMENT AND PLAN: 1. group c streptococcus right groin and thigh abscess and cellulitis status post incision and drainage with possible sepsis: - change abx to unasyn - may need further debridement per last surgery note - hopefully improves and can transition to oral augmentin soon 2. Continue treatment per Dr. Watson. 3. The patient has a history of hypertension. 4. Diabetes. 5. Blood sugar and blood pressure control per Dr. Watson. 6. History of deep venous thrombosis, on anticoagulation. 7. Hyperlipidemia. 8. No known allergies. 9. Social history is negative. 10. MAR was noted. Notes and records were reviewed. Case was discussed with RN. Subjective Constitutional: Denies: chills, fatigue, fever Respiratory: Denies: shortness of breath Cardiovascular: Denies: chest pain Gastrointestinal/Abdominal: Denies: diarrhea, nausea, vomiting Genitourinary: Denies: frequency, hematuria Neurologic: Denies: headache Psychiatric: Denies: depression Skin: Denies: rash Hematologic: Denies: bleeding Musculoskeletal: Denies: pain Allergies: Coded Allergies: No Known Allergies (Unverified , 06/18/16) Objective Vital Signs Last 24 Hour Vital Signs Date Time Temp Pulse Resp B/P Pulse Ox O2 Delivery O2 Flow Rate FiO2 11/01/16 11:32 98.2 72 20 129/73 96 Room Air 11/01/16 08:10 98.4 73 20 138/71 96 Room Air 11/01/16 04:00 97.6 70 18 128/80 95 Room Air 11/01/16 00:00 97.4 72 19 135/70 96 Room Air 10/31/16 20:00 97.6 79 19 146/69 97 Room Air 10/31/16 16:00 97.2 69 16 132/73 93 Room Air Height (Feet): 5 Height (Inches): 8.00 Weight (Pounds): 200 General Appearance: WD/WN, no acute distress HEENT: normocephalic, atraumatic, anicteric, mucous membranes moist, PERRL, EOMI, pharynx normal, supple, no JVD Respiratory/Chest: lungs clear, normal breath sounds, no respiratory distress, no accessory muscle use Cardiovascular: normal rate, no gallop/murmur, no JVD Abdomen: normal bowel sounds, soft, non tender, no organomegaly, non distended Genitourinary: other - no fish, right groin wound with some purulent drainage but less cellulitis noted Extremities: no cyanosis Skin: no rash 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, alert, oriented x 3, responsive Lymphatic: no neck adenopathy Musculoskeletal: no effusion Objective ct scan abdomen and pelvis noted (report reviewed) Microbiology Date/Time Source Procedure Growth Status 10/29/16 19:05 Rectum Gram Stain - Final Resulted 10/29/16 19:05 Wound Culture - Preliminary Streptococcus Group C Resulted 10/29/16 19:05 Rectum Anaerobic Culture - Preliminary NO GROWTH AFTER 48 HOURS Resulted Laboratory Tests Test 11/01/16 06:10 White Blood Count 8.5 K/UL (4.8-10.8) Red Blood Count 4.00 M/UL (4.70-6.10) L Hemoglobin 12.8 G/DL (14.2-18.0) L Hematocrit 36.6 % (42.0-52.0) L Mean Corpuscular Volume 92 FL (80-99) Mean Corpuscular Hemoglobin 32.0 PG (27.0-31.0) H Mean Corpuscular Hemoglobin Concent 35.0 G/DL (32.0-36.0) Red Cell Distribution Width 11.6 % (11.6-14.8) Platelet Count 319 K/UL (150-450) Mean Platelet Volume 5.3 FL (6.5-10.1) L Neutrophils (%) (Auto) 67.1 % (45.0-75.0) Lymphocytes (%) (Auto) 22.1 % (20.0-45.0) Monocytes (%) (Auto) 7.5 % (1.0-10.0) Eosinophils (%) (Auto) 2.1 % (0.0-3.0) Basophils (%) (Auto) 1.3 % (0.0-2.0) Sodium Level 138 mEQ/L (135-145) Potassium Level 3.4 mEQ/L (3.4-4.9) Chloride Level 98 mEQ/L (98-107) Carbon Dioxide Level 25 mEQ/L (20-30) Anion Gap 15 (5-15) Blood Urea Nitrogen 8 mg/dL (7-23) Creatinine 0.8 mg/dL (0.7-1.2) Estimat Glomerular Filtration Rate > 60 mL/min (>60) Glucose Level 166 mg/dL (74-106) H Calcium Level 9.1 mg/dL (8.6-10.2) Current Medications Medications (Trade) Dose Ordered Sig/Evangelina Route PRN Reason Start Time Stop Time Status Last Admin Dose Admin Acetaminophen (Tylenol) 650 mg Q4H PRN ORAL Mild Pain/Temp > 100.5 10/29/16 20:45 11/28/16 20:44 Acetaminophen/ Hydrocodone Bitart ([place] 5/325) 1 tab Q4H PRN ORAL Moderate Pain (Pain Scale 4-6) 10/29/16 20:45 11/05/16 20:44 Dextrose STAT PRN IV Hypoglycemia 10/30/16 00:00 11/29/16 00:00 Insulin Aspart (NovoLOG) BEFORE MEALS AND HS SUBQ 10/30/16 06:30 11/29/16 06:29 11/01/16 11:41 Metformin HCl (Glucophage) 850 mg BIAC ORAL 11/01/16 06:30 12/01/16 06:29 11/01/16 06:58 Ondansetron HCl (Zofran) 4 mg Q4H PRN IVP Nausea & Vomiting 10/29/16 20:45 11/28/16 20:44 Piperacillin Sod/ Tazobactam Sod/ Dextrose (Zosyn/D5W) 110 ml @ 27.5 mls/hr Q8HR@0000,0800,1600 IVPB 10/30/16 00:00 11/06/16 00:00 11/01/16 08:21 Rivaroxaban (Xarelto) 20 mg DAILY ORAL 11/01/16 11:00 12/01/16 10:59 11/01/16 12:04 Sodium Chloride (Sodium Chloride 1000ml bag) 1,000 ml @ 75 mls/hr [id number] IV 10/29/16 20:45 11/28/16 20:44 11/01/16 03:03 Vancomycin HCl 1 ea 1 ea DAILY PRN MISC Per rx protocol 10/29/16 21:00 11/28/16 20:59 Vancomycin HCl/ Dextrose (Vancomycin/D5W) 325 ml @ 162.5 mls/ hr Q12H IVPB 11/01/16 00:00 11/06/16 00:00 11/01/16 11:40 Zolpidem Tartrate (Ambien) 5 mg HSPRN PRN ORAL Insomnia 10/29/16 20:45 11/28/16 20:44 GENET MCCLENDON Nov 01, 2016 13:53
--- NOTE | 2016-11-01 14:08 | General Progress Note ---
Progress Note Progress Note Patient seen and examined at bedside. doing well. no acute events. wound with fibrinous debris and some drainage. will need more debridement today. see procedure note for details. Davie Gongora Nov 01, 2016 14:08
--- NOTE | 2016-11-01 14:35 | General Progress Note ---
Assessment/Plan Assessment/Plan 1. Cellulitis/abscess of perineum and right medial thigh, improved 2. Diabetes mellitus, improved control 3. Possible colitis or ileitis. Unasyn to Augmentin on DC debrided again today c/s strep group C pain controlled ambulate disc w surgeon, ID, RN Subjective Constitutional: Denies: fever Allergies: Coded Allergies: No Known Allergies (Unverified , 06/18/16) Objective Last 24 Hour Vital Signs Date Time Temp Pulse Resp B/P Pulse Ox O2 Delivery O2 Flow Rate FiO2 11/01/16 11:32 98.2 72 20 129/73 96 Room Air 11/01/16 08:10 98.4 73 20 138/71 96 Room Air 11/01/16 04:00 97.6 70 18 128/80 95 Room Air 11/01/16 00:00 97.4 72 19 135/70 96 Room Air 10/31/16 20:00 97.6 79 19 146/69 97 Room Air 10/31/16 16:00 97.2 69 16 132/73 93 Room Air Intake and Output 10/31/16 11/01/16 19:00 07:00 Intake Total 1287.416 ml 850 ml Output Total 1600 ml Balance 1287.416 ml -750 ml Intake Oral 360 ml 850 ml IV Total 927.416 ml Output Urine Total 1600 ml # Voids 2 2 Laboratory Tests 11/01/16 06:10: White Blood Count 8.5, Red Blood Count 4.00L, Hemoglobin 12.8L, Hematocrit 36.6L , Mean Corpuscular Volume 92, Mean Corpuscular Hemoglobin 32.0H, Mean Corpuscular Hemoglobin Concent 35.0, Red Cell Distribution Width 11.6, Platelet Count 319, Mean Platelet Volume 5.3L, Neutrophils (%) (Auto) 67.1, Lymphocytes ( %) (Auto) 22.1, Monocytes (%) (Auto) 7.5, Eosinophils (%) (Auto) 2.1, Basophils (%) (Auto) 1.3, Sodium Level 138, Potassium Level 3.4, Chloride Level 98, Carbon Dioxide Level 25, Anion Gap 15, Blood Urea Nitrogen 8, Creatinine 0.8, Estimat Glomerular Filtration Rate > 60, Glucose Level 166H, Calcium Level 9.1 Height (Feet): 5 Height (Inches): 8.00 Weight (Pounds): 200 General Appearance: no apparent distress Cardiovascular: normal rate Respiratory/Chest: lungs clear MIRIAM DAWSON Nov 01, 2016 14:35
--- NOTE | 2016-11-01 14:40 | Operative Note - PDOC ---
Operative Note Operative Note Chief Complaint: right groin pain Pre-op Diagnosis: Right groin abscess with cellulitis Procedure: Debridement of right groin abscess Post-op Diagnosis: same as pre-op Operative Findings: consistent w/pre-op dx studies Surgeon: Rolan Anesthesiologist: n/a Anesthesia: local, other - tissue debridement Specimen: none - culture taken for micro Complications: none Condition: stable Fluids: n/a Estimated Blood Loss: minimal Drains: none Packing: gauze wet to dry bid Implant(s) used?: No Indications for Procedure 70 M with DM presented with right groin infection s/p I&D. wound improved but some fibrinous debris noted recently. debridement necessary and indicated. risks, benefits, and alternatives discussed with patient in detail. patient expressed understanding and consented to debridement. Description of Procedure patient was made comfortable at bedside. prior dressings and packing removed. wound irrigated. necrotic fibrinous tissue debrided using surgical scissors and forceps. wound cleaned to good healthy tissue. wound irrigated again and packing and dressings applied. patient tolerated procedure well. Davie Gongora Nov 01, 2016 14:40
[2016-11-01 15:46] VITALS: BP 125/76
[2016-11-01] MEDS: Ampicillin/Sulbactam Sod 3 GM in NS 110 ML IVPB SCH ×2 (17:04→18:05)
[2016-11-01 20:00] VITALS: BP 134/67
[2016-11-02] VITALS: BP_SYST 108; BP_SYST 122; BP_DIAS 58; BP_DIAS 64
[2016-11-02] MEDS: Ampicillin/Sulbactam Sod 3 GM in NS 110 ML IVPB SCH ×2 (00:17→05:10)
[2016-11-02 04:00] VITALS: BP 122/46
[2016-11-02] MEDS: NovoLOG Insulin Flexpen SUBQ SCH ×4 (06:21→21:23)
[2016-11-02 06:36] LABS: BASOPHILS % (AUTO) 0.9 % (0.0-2.0); EOSINOPHILS % (AUTO) 1.6 % (0.0-3.0); LYMPHOCYTES % (AUTO) 26.6 % (20.0-45.0); MEAN CORPUSCULAR HEMOGLOBIN 31.7 PG (27.0-31.0); MEAN CORPUSCULAR VOLUME 91 FL (80-99); MEAN PLATELET VOLUME 5.2 FL (6.5-10.1); MONOCYTES % (AUTO) 6.8 % (1.0-10.0); NEUTROPHILS % (AUTO) 64.1 % (45.0-75.0); PLATELET COUNT 362 K/UL (150-450); RED BLOOD COUNT 4.12 M/UL (4.70-6.10); RED CELL DISTRIBUTION WIDTH 11.5 % (11.6-14.8); WHITE BLOOD COUNT 8.9 K/UL (4.8-10.8)
[2016-11-02 06:50] LABS: ANION GAP 14 (5-15); CALCIUM 9.2 mg/dL (8.6-10.2); CARBON DIOXIDE 25 mEQ/L (20-30); CHLORIDE 100 mEQ/L (98-107); CREATININE 0.8 mg/dL (0.7-1.2); GLOMERULAR FILTRATION RATE > 60 mL/min (>60); HEMOLYSIS 4; POTASSIUM 3.5 mEQ/L (3.4-4.9); SODIUM 139 mEQ/L (135-145)
[2016-11-02 08:25] VITALS: BP 137/71
[2016-11-02] MEDS: Xarelto 10mg tab ORAL SCH (08:30)
[2016-11-02] MEDS ORDERED: Tubing IV Secondary IV ONE (10:52)
--- NOTE | 2016-11-02 11:27 | Infectious Diseases Prog Note ---
Assessment/Plan Assessment/Plan ASSESSMENT AND PLAN: 1. group c streptococcus right groin and thigh abscess and cellulitis status post incision and drainage with possible sepsis: - unasyn - s/p debridement x 2 - can transition to oral augmentin x 7 days - c/w Dr. Cortez 2. Continue treatment per Dr. Watson. 3. The patient has a history of hypertension. 4. Diabetes. 5. Blood sugar and blood pressure control per Dr. Watson. 6. History of deep venous thrombosis, on anticoagulation. 7. Hyperlipidemia. 8. No known allergies. 9. Social history is negative. 10. MAR was noted. Notes and records were reviewed. Case was discussed with RN. Subjective Constitutional: Denies: fever HEENT: Denies: congestion Respiratory: Denies: shortness of breath Cardiovascular: Denies: chest pain Gastrointestinal/Abdominal: Denies: nausea, vomiting Genitourinary: Denies: dysuria Psychiatric: Denies: depression Skin: Denies: rash Hematologic: Denies: bleeding Musculoskeletal: Denies: pain Allergies: Coded Allergies: No Known Allergies (Unverified , 06/18/16) Objective Vital Signs Last 24 Hour Vital Signs Date Time Temp Pulse Resp B/P Pulse Ox O2 Delivery O2 Flow Rate FiO2 11/02/16 08:25 97.8 68 20 137/71 94 Room Air 11/02/16 04:00 96.2 65 20 122/46 99 Room Air 11/02/16 00:00 97.4 70 20 108/58 96 Room Air 11/01/16 20:00 98.6 69 21 134/67 96 Room Air 11/01/16 15:46 98.1 68 20 125/76 95 Room Air 11/01/16 11:32 98.2 72 20 129/73 96 Room Air Height (Feet): 5 Height (Inches): 8.00 Weight (Pounds): 200 General Appearance: WD/WN, no acute distress HEENT: normocephalic, atraumatic, anicteric, mucous membranes moist, PERRL, EOMI, pharynx normal, supple, no JVD Respiratory/Chest: lungs clear, normal breath sounds, no respiratory distress, no accessory muscle use Cardiovascular: regular rhythm, no gallop/murmur, no JVD Abdomen: normal bowel sounds, soft, non tender, no organomegaly, non distended Genitourinary: other - no fish Extremities: no cyanosis Skin: no rash, other - wound right groin/thigh covered post - debridement 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, alert, oriented x 3, responsive Lymphatic: no neck adenopathy Musculoskeletal: no effusion Objective ct scan abdomen and pelvis noted (report reviewed) Laboratory Tests Test 11/02/16 04:40 White Blood Count 8.9 K/UL (4.8-10.8) Red Blood Count 4.12 M/UL (4.70-6.10) L Hemoglobin 13.0 G/DL (14.2-18.0) L Hematocrit 37.3 % (42.0-52.0) L Mean Corpuscular Volume 91 FL (80-99) Mean Corpuscular Hemoglobin 31.7 PG (27.0-31.0) H Mean Corpuscular Hemoglobin Concent 35.0 G/DL (32.0-36.0) Red Cell Distribution Width 11.5 % (11.6-14.8) L Platelet Count 362 K/UL (150-450) Mean Platelet Volume 5.2 FL (6.5-10.1) L Neutrophils (%) (Auto) 64.1 % (45.0-75.0) Lymphocytes (%) (Auto) 26.6 % (20.0-45.0) Monocytes (%) (Auto) 6.8 % (1.0-10.0) Eosinophils (%) (Auto) 1.6 % (0.0-3.0) Basophils (%) (Auto) 0.9 % (0.0-2.0) Sodium Level 139 mEQ/L (135-145) Potassium Level 3.5 mEQ/L (3.4-4.9) Chloride Level 100 mEQ/L (98-107) Carbon Dioxide Level 25 mEQ/L (20-30) Anion Gap 14 (5-15) Blood Urea Nitrogen 6 mg/dL (7-23) L Creatinine 0.8 mg/dL (0.7-1.2) Estimat Glomerular Filtration Rate > 60 mL/min (>60) Glucose Level 135 mg/dL (74-106) H Calcium Level 9.2 mg/dL (8.6-10.2) Current Medications Medications (Trade) Dose Ordered Sig/Evangelina Route PRN Reason Start Time Stop Time Status Last Admin Dose Admin Acetaminophen (Tylenol) 650 mg Q4H PRN ORAL Mild Pain/Temp > 100.5 10/29/16 20:45 11/28/16 20:44 Acetaminophen/ Hydrocodone Bitart ([place] 5/325) 1 tab Q4H PRN ORAL Moderate Pain (Pain Scale 4-6) 10/29/16 20:45 11/05/16 20:44 Ampicillin Sodium/ Sulbactam Sodium/ Dextrose (Unasyn/D5W) 110 ml @ 220 mls/hr Q6H IVPB 11/02/16 14:00 11/09/16 13:59 Dextrose (Dextrose 50%) STAT PRN IV Hypoglycemia 10/30/16 00:00 11/29/16 00:00 Insulin Aspart (NovoLOG) BEFORE MEALS AND HS SUBQ 10/30/16 06:30 11/29/16 06:29 11/02/16 11:21 Metformin HCl (Glucophage) 850 mg BIAC ORAL 11/01/16 06:30 12/01/16 06:29 11/02/16 05:54 Ondansetron HCl (Zofran) 4 mg Q4H PRN IVP Nausea & Vomiting 10/29/16 20:45 11/28/16 20:44 Rivaroxaban 20 mg 20 mg DAILY ORAL 11/01/16 11:00 12/01/16 10:59 11/02/16 08:30 Sodium Chloride (Sodium Chloride 1000ml bag) 1,000 ml @ 75 mls/hr [id number] IV 10/29/16 20:45 11/28/16 20:44 11/02/16 02:58 Zolpidem Tartrate (Ambien) 5 mg HSPRN PRN ORAL Insomnia 10/29/16 20:45 11/28/16 20:44 GENET MCCLENDON Nov 02, 2016 11:27
--- NOTE | 2016-11-02 12:02 | General Progress Note ---
Progress Note Progress Note Right thigh-buttocks wound engine cleaner, granulating OK. Nothing more at this time LISA WARD Nov 02, 2016 12:02
[2016-11-02 12:11] VITALS: BP 135/75
[2016-11-02] MEDS: Ampicillin/Sulbactam Sod 3 GM in D5W 110 ML IVPB SCH ×2 (13:37→19:54)
[2016-11-02 16:00] VITALS: BP 136/72
[2016-11-02 20:00] VITALS: BP 138/74
--- NOTE | 2016-11-02 20:39 | Pulmonology Progress Note ---
Assessment/Plan Assessment/Plan 1. Per ID :group c streptococcus right groin and thigh abscess and cellulitis status post incision and drainage with possible sepsis: - unasyn - s/p debridement x 2 - can transition to oral augmentin x 7 days 2. DM 3. obesity 4. ? colitis wound care and dressing per surgery IV abx as noted above bs control check labs pain control dvt prophylasix is Subjective ROS Limited/Unobtainable: Yes Constitutional: Reports: no symptoms HEENT: Repors: no symptoms Respiratory: Reports: no symptoms Cardiovascular: Reports: no symptoms Gastrointestinal/Abdominal: Reports: no symptoms Skin: Reports: other, ulcer Allergies: Coded Allergies: No Known Allergies (Unverified , 06/18/16) Subjective pain in right medial thigh wound and packing requesting it be changed no cp nv or bleeding tolerating po Objective Last 24 Hour Vital Signs Date Time Temp Pulse Resp B/P Pulse Ox O2 Delivery O2 Flow Rate FiO2 11/02/16 16:00 99.3 67 18 136/72 96 Room Air 11/02/16 12:11 98.2 70 20 135/75 94 Room Air 11/02/16 08:25 97.8 68 20 137/71 94 Room Air 11/02/16 04:00 96.2 65 20 122/46 99 Room Air 11/02/16 00:00 97.4 70 20 108/58 96 Room Air Intake and Output 11/01/16 11/02/16 19:00 07:00 Intake Total 1497.5 ml 928 ml Output Total 500 ml 500 ml Balance 997.5 ml 428 ml Intake Oral 480 ml 400 ml IV Total 1017.5 ml 528 ml Output Urine Total 500 ml 500 ml # Voids 2 General Appearance: WD/WN Respiratory/Chest: lungs clear Cardiovascular: normal rate Abdomen: soft, non tender Skin: lesions - right medial thigh Neurologic/Psychiatric: oriented x 3 Lymphatic: no neck adenopathy Laboratory Tests 11/02/16 04:40: White Blood Count 8.9, Red Blood Count 4.12L, Hemoglobin 13.0L, Hematocrit 37.3L , Mean Corpuscular Volume 91, Mean Corpuscular Hemoglobin 31.7H, Mean Corpuscular Hemoglobin Concent 35.0, Red Cell Distribution Width 11.5L, Platelet Count 362, Mean Platelet Volume 5.2L, Neutrophils (%) (Auto) 64.1, Lymphocytes (%) (Auto) 26.6, Monocytes (%) (Auto) 6.8, Eosinophils (%) (Auto) 1.6, Basophils (%) (Auto) 0.9, Sodium Level 139, Potassium Level 3.5, Chloride Level 100, Carbon Dioxide Level 25, Anion Gap 14, Blood Urea Nitrogen 6L, Creatinine 0.8, Estimat Glomerular Filtration Rate > 60, Glucose Level 135H, Calcium Level 9.2 Current Medications Medications (Trade) Dose Ordered Sig/Evangelina Route PRN Reason Start Time Stop Time Status Last Admin Dose Admin Acetaminophen (Tylenol) 650 mg Q4H PRN ORAL Mild Pain/Temp > 100.5 10/29/16 20:45 11/28/16 20:44 Acetaminophen/ Hydrocodone Bitart ([place] 5/325) 1 tab Q4H PRN ORAL Moderate Pain (Pain Scale 4-6) 10/29/16 20:45 11/05/16 20:44 Ampicillin Sodium/ Sulbactam Sodium/ Dextrose (Unasyn/D5W) 110 ml @ 220 mls/hr Q6H IVPB 11/02/16 14:00 11/09/16 13:59 11/02/16 19:54 Dextrose (Dextrose 50%) STAT PRN IV Hypoglycemia 10/30/16 00:00 11/29/16 00:00 Insulin Aspart (NovoLOG) BEFORE MEALS AND HS SUBQ 10/30/16 06:30 11/29/16 06:29 11/02/16 16:35 Metformin HCl (Glucophage) 850 mg BIAC ORAL 11/01/16 06:30 12/01/16 06:29 11/02/16 16:33 Ondansetron HCl (Zofran) 4 mg Q4H PRN IVP Nausea & Vomiting 10/29/16 20:45 11/28/16 20:44 Rivaroxaban 20 mg 20 mg DAILY ORAL 11/01/16 11:00 12/01/16 10:59 11/02/16 08:30 Sodium Chloride (Sodium Chloride 1000ml bag) 1,000 ml @ 75 mls/hr [id number] IV 10/29/16 20:45 11/28/16 20:44 11/02/16 17:46 Zolpidem Tartrate (Ambien) 5 mg HSPRN PRN ORAL Insomnia 10/29/16 20:45 11/28/16 20:44 EVELYN JURADO DO Nov 02, 2016 20:39
[2016-11-03] VITALS: BP 159/62
[2016-11-03] MEDS: Ampicillin/Sulbactam Sod 3 GM in D5W 110 ML IVPB SCH ×4 (01:20→19:09)
[2016-11-03 04:00] VITALS: BP 134/75
[2016-11-03] MEDS: NovoLOG Insulin Flexpen SUBQ SCH ×4 (06:08→21:08)
[2016-11-03 07:52] LABS: ANION GAP 16 (5-15); CALCIUM 8.5 mg/dL (8.6-10.2); CARBON DIOXIDE 23 mEQ/L (20-30); CHLORIDE 100 mEQ/L (98-107); CREATININE 0.7 mg/dL (0.7-1.2); GLOMERULAR FILTRATION RATE > 60 mL/min (>60); HEMOLYSIS 8; POTASSIUM 3.7 mEQ/L (3.4-4.9); SODIUM 139 mEQ/L (135-145)
[2016-11-03 08:15] VITALS: BP 130/76
[2016-11-03] MEDS: Xarelto 10mg tab ORAL SCH (08:18)
--- NOTE | 2016-11-03 11:31 | General Progress Note ---
Progress Note Progress Note Wound very clean, healing well. OK to discharge with visiting nurse for wound care q day x 1-2 weeks LISA WARD Nov 03, 2016 11:31
[2016-11-03 12:15] VITALS: BP 137/80
[2016-11-03 16:02] VITALS: BP 142/83
--- NOTE | 2016-11-03 18:11 | Pulmonology Progress Note ---
Assessment/Plan Assessment/Plan 1. Per ID :group c streptococcus right groin and thigh abscess and cellulitis status post incision and drainage with possible sepsis: - unasyn - s/p debridement x 2 - can transition to oral augmentin x 7 days 2. DM 3. obesity 4. ? colitis wound care and dressing per surgery IV abx as noted above bs control check labs pain control dvt prophylasix is dc am with vitising nurse per surgery will need abx recs from ID prior to dc Subjective Constitutional: Reports: no symptoms Respiratory: Reports: other Gastrointestinal/Abdominal: Reports: no symptoms Neurologic: Reports: no symptoms Skin: Reports: other Allergies: Coded Allergies: No Known Allergies (Unverified , 06/18/16) Subjective pain in right medial thigh wound and packing moist with drainage no cp nv or bleeding tolerating po pain somewhat controlled Objective Last 24 Hour Vital Signs Date Time Temp Pulse Resp B/P Pulse Ox O2 Delivery O2 Flow Rate FiO2 11/03/16 16:02 97.9 63 20 142/83 99 Room Air 11/03/16 12:15 97.7 72 21 137/80 99 Room Air 11/03/16 08:15 97.9 73 20 130/76 97 Room Air 11/03/16 04:00 98.2 60 20 134/75 97 Room Air 11/03/16 00:00 97.7 68 20 159/62 91 Room Air 11/02/16 20:00 98.4 64 20 138/74 96 Room Air Intake and Output 11/02/16 11/03/16 19:00 07:00 Intake Total 1390 ml 860 ml Output Total 1200 ml Balance 190 ml 860 ml Intake Oral 720 ml IV Total 670 ml 860 ml Output Urine Total 1200 ml # Bowel Movements 1 HEENT: atraumatic Abdomen: non distended Skin: lesions - right buttocks thigh perineum Neurologic/Psychiatric: oriented x 3 Lymphatic: no neck adenopathy Musculoskeletal: normal muscle bulk Laboratory Tests 11/03/16 04:35: Sodium Level 139, Potassium Level 3.7, Chloride Level 100, Carbon Dioxide Level 23, Anion Gap 16H, Blood Urea Nitrogen 7, Creatinine 0.7, Estimat Glomerular Filtration Rate > 60, Glucose Level 125H, Calcium Level 8.5L Current Medications Medications (Trade) Dose Ordered Sig/Evangelina Route PRN Reason Start Time Stop Time Status Last Admin Dose Admin Acetaminophen (Tylenol) 650 mg Q4H PRN ORAL Mild Pain/Temp > 100.5 10/29/16 20:45 11/28/16 20:44 Acetaminophen/ Hydrocodone Bitart ([place] 5/325) 1 tab Q4H PRN ORAL Moderate Pain (Pain Scale 4-6) 10/29/16 20:45 11/05/16 20:44 Ampicillin Sodium/ Sulbactam Sodium/ Dextrose (Unasyn/D5W) 110 ml @ 220 mls/hr Q6H IVPB 11/02/16 14:00 11/09/16 13:59 11/03/16 13:04 Dextrose (Dextrose 50%) STAT PRN IV Hypoglycemia 10/30/16 00:00 11/29/16 00:00 Insulin Aspart (NovoLOG) BEFORE MEALS AND HS SUBQ 10/30/16 06:30 11/29/16 06:29 11/03/16 16:43 Metformin HCl (Glucophage) 850 mg BIAC ORAL 11/01/16 06:30 12/01/16 06:29 11/03/16 16:42 Ondansetron HCl (Zofran) 4 mg Q4H PRN IVP Nausea & Vomiting 10/29/16 20:45 11/28/16 20:44 Rivaroxaban 20 mg 20 mg DAILY ORAL 11/01/16 11:00 12/01/16 10:59 11/03/16 08:18 Sodium Chloride (Sodium Chloride 1000ml bag) 1,000 ml @ 75 mls/hr [id number] IV 10/29/16 20:45 11/28/16 20:44 11/03/16 03:54 Zolpidem Tartrate (Ambien) 5 mg HSPRN PRN ORAL Insomnia 10/29/16 20:45 11/28/16 20:44 EVELYN JURADO DO Nov 03, 2016 18:11
[2016-11-03 20:00] VITALS: BP 149/79
[2016-11-04] MEDS: Ampicillin/Sulbactam Sod 3 GM in D5W 110 ML IVPB SCH ×2 (02:04→08:22)
[2016-11-04 04:00] VITALS: BP 153/81
[2016-11-04] MEDS: NovoLOG Insulin Flexpen SUBQ SCH ×2 (06:07→11:38)
[2016-11-04 08:00] VITALS: BP 143/76
[2016-11-04] MEDS: Xarelto 10mg tab ORAL SCH (08:22)
[2016-11-04] MEDS ORDERED: Augmentin 875mg Tab ORAL SCH (09:00)
--- NOTE | 2016-11-04 09:35 | General Progress Note ---
Progress Note Progress Note Patient seen and examined at bedside. no acute events. doing well. no complaints. no n/v/f/c. pain improved. wound clean, good granulation tissue, minimal (significantly improved) erythema and edema. no purulent drainage. micro reviewed. labs reviewed. vitals stable. Plan: okay to d/c home from surgical standpoint with oral abx wet to dry BID or TID if possible to surgical wound (gauze and normal saline) activity as tolerated okay to shower. remove dressings, shower, then apply new dressings. follow up with me next friday for wound check. can call my office for appointment [phone] Davie Gongora Nov 04, 2016 09:35
[2016-11-04 11:45] VITALS: BP 126/67
[2016-11-04] MEDS ORDERED: AMOX TR-K CLV1 EAC2 ORAL (13:12)
--- NOTE | 2016-11-04 13:13 | Discharge Summary ---
Discharge Summary Hospital Course Date of Admission Oct 29, 2016 at 15:50 Date of Discharge 11/04/16 Admitting Diagnosis PERIRECTAL CELLULITIS HPI Mehul Black is a 70 year old male who was admitted on Oct 29, 2016 at 15:50 for Perirectal Cellulitis Consultations surgery, ID Procedures I&D abscess R groin Hospital Course improved w abx and drainage culture w strep group C dc on Augmentin Discharge Medications New Medications: Amoxicillin/Potassium Clav 875-125 Mg Tab* (Amox Tr-K Clv 875-125 Mg Tab*) 1 Each Tablet 875 MG ORAL EVERY 12 HOURS, #14 TAB Continued Medications: Metformin Hcl* (Glucophage*) 850 Mg Tablet 850 MG ORAL TIAC for 30 Days, #60 TAB Rivaroxaban (Xarelto) 15 Mg Tablet 15 MG ORAL BID for 20 Days, MG 0 Refills Discharge Condition Upon Discharge: improving Discharge Disposition Patient was discharged to Home with Home Health(06) Discharge Diagnoses: (1) Perirectal cellulitis (2) Diabetes type 2, uncontrolled MIRIAM DAWSON Nov 04, 2016 13:13
== END 2016-11-04 13:15 | disposition home health service (06) | DRG 854 ==
LOC: EDBEDREQ 12:15 → EMR 12:33 → 4W 15:50 → EDBEDREQ 16:40
PROC: 0H99XZZ Drainage of Perineum Skin, External Approach (ICD-10-PCS; principal; 2016-10-29)
DX: A41.9 Sepsis, unspecified organism (principal); L02.214 Cutaneous abscess of groin; E11.65 Type 2 diabetes mellitus with hyperglycemia; L02.415 Cutaneous abscess of right lower limb; L03.315 Cellulitis of perineum; Z86.718 Personal history of other venous thrombosis and embolism; Z79.01 Long term (current) use of anticoagulants; K52.9 Noninfective gastroenteritis and colitis, unspecified; B95.4 Other streptococcus as the cause of diseases classified elsewhere; E78.5 Hyperlipidemia, unspecified; K80.80 Other cholelithiasis without obstruction; K40.20 Bilateral inguinal hernia, without obstruction or gangrene, not specified as recurrent
CPT/HCPCS: 36415; 74177; 80048; 80053; 80061; 80202; 81003; 82550; 82553; 82962; 83036; 83605; 84484; 85025; 85610; 85651; 85730; 86850; 86900; 86901; 87040; 87070; 87075; 87081; 87181; 87205; J1815